=== PATIENT | female | born 1980 | race Caucasian/White ===

== ENCOUNTER 2019-02-01 06:20 | Inpatient (IN) | payer MEDICAID ==
[~2019-02-01] VITALS: Ht 154.9 cm; Wt 87.5 kg
[~2019-02-01 06:20] MED LIST: APAP500; BENADRYL25 MG PO; HUMULIN 70100 UNIT/2 SUBQ; METHADONE HCL 110 M1 PO; NORCO 10-325 T1 EACH; NOVOLOG100 UNIT/1 SUBQ; PREMPHASE 0.621 EAC1 PO; TRAMADOL 50 MG50 MG PO; TRIAMCINOLONE A80 G2 TOP
[2019-02-01] MEDS ORDERED: ABILIFY20 MG PO (06:36)
[2019-02-01] MEDS ORDERED: PROZAC20 M1 PO (06:38)
[2019-02-01] MEDS ORDERED: LITHIUM CARBON300 M6 PO (06:39)
[2019-02-01] MEDS ORDERED: ABILIFY 5 MG TAB5 MG PO (06:39)
[2019-02-01 07:13] LABS: BE -4.5 mmol/L (-2 to +3); PCO2 33.3 mmHg (35.0-45.0); PO2 94.6 mmHg (75.0-100.0); pH 7.388 (7.340-7.450)
[2019-02-01 07:41] LABS: ABSOLUTE BASOPHILS 0.1 thou/uL (0.0-0.2); ABSOLUTE EOSINOPHILS 0.2 thou/uL (0.0-0.7); ABSOLUTE LYMPHOCYTES 2.9 thou/uL (0.8-5.3); ABSOLUTE MONOCYTES 0.7 thou/uL (0.0-1.2); ABSOLUTE NEUTROPHILS 6.7 thou/uL (1.6-8.1); BASOPHILS 0.5 %; EOSINOPHILS 1.5 %; HEMATOCRIT 39.6 % (37.0-47.0); HEMOGLOBIN 13.1 gm/dL (12.0-15.0); LYMPHOCYTES 27.3 %; MCH 30.4 pg (26.0-34.0); MCHC 33.1 g/dL (28.0-37.0); MCV 91.8 fL (80.0-100.0); MONOCYTES 6.9 %; MPV 7.2 fl. (7.2-11.1); NUCLEATED RBCS 0 /100WBC; PLATELET COUNT* 368 thou/uL (150-400); POLYS 63.8 %; RBC 4.32 mil/uL (4.20-5.00); RDW-CV 12.8 % (10.5-14.5); WBC 10.5 thou/uL (4.0-11.0)
[2019-02-01 07:51] LABS: CALCIUM 9.3 mg/dL (8.5-10.1); CREATININE 0.8 mg/dL (0.6-1.3); POTASSIUM 3.5 mmol/L (3.5-5.1)
[2019-02-01 07:55] LABS: ALBUMIN 3.5 g/dL (3.4-5.0); MAGNESIUM 2.1 mg/dL (1.8-2.4); PHOSPHORUS* 3.1 mg/dL (2.5-4.9); TOTAL BILIRUBIN 0.2 mg/dL (<0.1-1.0); TOTAL PROTEIN 7.5 g/dL (6.4-8.2)
[2019-02-01 08:22] LABS: URINE BILIRUBIN NEGATIVE (Negative); URINE BLOOD NEGATIVE (Negative); URINE CLARITY CLEAR; URINE COLOR STRAW; URINE GLUCOSE-RANDOM 3+ (Negative); URINE KETONES 2+ (Negative); URINE LEUKOCYTES-REFLEX NEGATIVE (Negative); URINE NITRITE-REFLEX NEGATIVE (Negative); URINE PROTEIN NEGATIVE (Negative); URINE SPECIFIC GRAVITY <= 1.005 (1.005-1.030); URINE UROBILINOGEN 0.2 E.U./dl (0.2-1.0)
[2019-02-01 08:27] LABS: AMP/METHAMP Negative (Negative); BARBITURATES Negative (Negative); BENZODIAZEPINES POSITIVE (Negative); COCAINE POSITIVE (Negative); METHADONE Negative (Negative); OPIATES Negative (Negative); PCP Negative (Negative); THC POSITIVE (Negative)
[2019-02-01 08:47] LABS: ACETAMINOPHEN < 2 ug/mL (10-30); ALCOHOL < 10 mg/dL (<10); SALICYLATE 3.5 mg/dL (2.8-20.0)
[2019-02-01 10:46] LABS: ANION GAP 11 mmol/L (7-16); CHLORIDE 105 mmol/L (98-107); CO2 22 mmol/L (21-32); SODIUM 138 mmol/L (136-145)
[2019-02-01 11:19] VITALS: BP 109/61
[2019-02-01 11:32] VITALS: BP 117/77
--- NOTE | 2019-02-01 12:42 | EKG ---
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1980 Requested By: Terrence Parsons Order Number: [id number] : Héctor Chang Measurements Intervals [place] Rate: 90 P: 49 CO: 177 QRS: -13 QRSD: 100 T: 11 QT: 411 QTc: 503 Interpretive Statements Sinus rhythm Prolonged QT interval Compared to ECG 06/06/2018 06:42:15 Sinus tachycardia no longer present T-wave abnormality no longer present Electronically Signed On 02-01-2019 12:41:52 CDT by Héctor Chang [email or web address] <ELECTRONICALLY SIGNED> By: Chloe Chang MD, [facility] 02/01/19 1241 0628 0628 Chloe Chang MD, [facility] /EPI
[2019-02-01 13:00] VITALS: BP 110/72
[2019-02-01 14:00] VITALS: BP 107/74
[2019-02-01 15:00] VITALS: BP 109/80; BP 118/90
[2019-02-01 16:06] LABS: ALBUMIN 2.8 g/dL (3.4-5.0); CALCIUM 8.7 mg/dL (8.5-10.1); CREATININE 0.5 mg/dL (0.6-1.3); MAGNESIUM 1.9 mg/dL (1.8-2.4); POTASSIUM 3.3 mmol/L (3.5-5.1)
[2019-02-02 02:06] LABS: GLYCOHEMOGLOBIN (HGB A1C) 11.6 % (4.8-5.6)
[2019-02-02 04:54] LABS: HEMATOCRIT 33.5 % (37.0-47.0); HEMOGLOBIN 11.2 gm/dL (12.0-15.0); MCH 30.3 pg (26.0-34.0); MCHC 33.3 g/dL (28.0-37.0); MCV 90.8 fL (80.0-100.0); MPV 7.2 fl. (7.2-11.1); RBC 3.69 mil/uL (4.20-5.00); RDW-CV 12.7 % (10.5-14.5)
[2019-02-02 05:02] LABS: ANION GAP 8 mmol/L (7-16); CHLORIDE 109 mmol/L (98-107); CO2 26 mmol/L (21-32); SODIUM 143 mmol/L (136-145)
[2019-02-02 05:06] LABS: CALCIUM 8.2 mg/dL (8.5-10.1); CREATININE 0.5 mg/dL (0.6-1.3)
[2019-02-02 05:11] LABS: ALBUMIN 2.4 g/dL (3.4-5.0); MAGNESIUM 2.1 mg/dL (1.8-2.4); TOTAL BILIRUBIN 0.1 mg/dL (<0.1-1.0); TOTAL PROTEIN 5.2 g/dL (6.4-8.2)
[2019-02-02 08:00] VITALS: BP 97/52
[2019-02-02 08:30] VITALS: BP 124/73
[2019-02-02 12:00] VITALS: BP 106/70
[2019-02-02 16:00] VITALS: BP 123/80
[2019-02-03 00:59] VITALS: BP 150/91
[2019-02-03 04:00] VITALS: BP 123/72
[2019-02-03 05:10] LABS: HEMATOCRIT 33.5 % (37.0-47.0); HEMOGLOBIN 11.3 gm/dL (12.0-15.0); MCH 30.8 pg (26.0-34.0); MCHC 33.6 g/dL (28.0-37.0); MCV 91.6 fL (80.0-100.0); MPV 7.9 fl. (7.2-11.1); RBC 3.66 mil/uL (4.20-5.00); RDW-CV 12.8 % (10.5-14.5); WBC 7.3 thou/uL (4.0-11.0)
[2019-02-03 05:18] LABS: CALCIUM 8.5 mg/dL (8.5-10.1); CREATININE 0.5 mg/dL (0.6-1.3); MAGNESIUM 2.1 mg/dL (1.8-2.4); POTASSIUM 3.5 mmol/L (3.5-5.1)
[2019-02-03 08:00] VITALS: BP 119/71
[2019-02-03 12:00] VITALS: BP 138/81
[2019-02-03 16:00] VITALS: BP 110/60
--- NOTE | 2019-02-03 17:37 | CON ---
[address] [address] CONSULTATION Name: SÁNCHEZ SANCHEZ Room: [place] [address] ADM IN .R.#: [id number] Admission: 02/01/19 Attend Phys: Luzma Lucas MD Discharge: Date of : 80 Report #: [id number] THIS REPORT FOR: //name// CC: AG Lucas DATE OF SERVICE: 02/02/2019 INFECTIOUS DISEASE CONSULTATION REASON FOR CONSULTATION: Evaluate for bacteremia. HISTORY OF PRESENT ILLNESS: The patient is a 38-year-old, admitted through the Emergency Room for uncontrolled blood glucose levels, agitation associated with mild sweats and chills with nausea and vomiting. She admits to being noncompliant with her diet and insulin. She has been on methadone chronically. She states that her doctor had referred her on to another physician. She has been without methadone prescription. She has been weaning herself off over the last several weeks. She has also been taking cocaine and occasional marijuana. She denies any documented fevers. She has had no skin lesions. No cough or sputum production. No chest pain or palpitations. Denies any abdominal pain, flank pain, dysuria or frequency. No diarrhea. The nausea has improved. She has been given IV fluids and blood sugar control has improved. Overall, she feels much better. She does have underlying history of anxiety. ALLERGIES: GABAPENTIN AND TRAMADOL. MEDICATIONS: As noted on her MAR including vancomycin, which was started today after positive blood cultures were reported, pantoprazole, methadone, insulin, aripiprazole, lithium and fluoxetine. PAST MEDICAL HISTORY: Anxiety, fibromyalgia, diabetes, chronic back pain, appendectomy, hysterectomy. SOCIAL HISTORY: She has 4 children. Social history otherwise, smoker of cigarettes, occasional alcohol intake. Other issues as noted above. REVIEW OF SYSTEMS: Ten-point review was otherwise negative. PHYSICAL EXAMINATION: VITAL SIGNS: She was afebrile and hemodynamically stable. GENERAL: She is alert and cooperative and pleasant, in no acute distress. SKIN: Without lesion or rash. No palpable adenopathy. Moderately obese. HEENT: Eyes without scleral icterus. Mouth without mucositis. NECK: Supple. LUNGS: [place] [address] CONSULTATION Name: SÁNCHEZ SANCHEZ Room: [address]#: [id number] Admission: 02/01/19 Attend Phys: Luzma Lucas MD Discharge: Date of : 80 Report #: [id number] HEART: Regular without murmur. ABDOMEN: Soft, nontender. No hepatosplenomegaly or mass. EXTREMITIES: Without clubbing, cyanosis or edema. NEUROLOGIC: Cranial nerves intact. Strength in upper and lower extremities is normal. Mood is normal. LABORATORY DATA: Blood cultures 1 of 2 showing gram-positive cocci, identification is pending. Sodium is 143, potassium 4, creatinine 0.5. Liver function test is normal. Hemoglobin is 11, WBC 6, and platelet count 271,000. Drug screen is positive for marijuana, cocaine, and benzodiazepines. Urinalysis, 3+ glucose and 2+ ketones. Initial blood glucose was in the 300s, got up into the 400s, now has improved to 140. Chest x-ray was clear. IMPRESSION AND PLAN: A 38-year-old diabetic, chronic pain syndrome, who is coming off of methadone, who also does cocaine, marijuana, and benzodiazepines. I am suspecting of polysubstance abuse may be part of what is going on with her symptomatically. The positive blood culture is yet indeterminate whether it is true or contaminant. For right now, she will stay on vancomycin, pending identification of the blood culture. Agree with current management for blood glucose control. The patient will need to get set back up in her methadone clinic if possible. <ELECTRONICALLY SIGNED> By: Brandon Fleming MD 02/03/19 1737 1735 58Brandon Fleming MD /nt
[2019-02-03 20:15] VITALS: BP 147/79
[2019-02-04] VITALS: BP 118/67; BP 138/69
[2019-02-04 04:00] VITALS: BP 112/55
[2019-02-04 08:00] VITALS: BP 135/78
[2019-02-04 12:00] VITALS: BP 132/70
[2019-02-04 16:00] VITALS: BP 122/73
--- NOTE | 2019-02-04 17:36 | 2DMMODE ---
[place] [address] 2 D/M-MODE ECHOCARDIOGRAM Name: SÁNCHEZ SANCHEZ Room: [place] [address] ADM IN .R.#: [id number] Admission: 02/01/19 Attend Phys: Luzma Lucas, Discharge: Date of : 80 Date of Service: 02/04/19 1736 Report #: [id number] THIS REPORT FOR: //name// APPROVED REPORT Study performed: 02/04/2019 11:34:42 EXAM: Comprehensive 2D, Doppler, and color-flow Echocardiogram BSA: 1.82 HR: 73 bpm BP: 112/55 mmHg Other Information Study Quality: Fair Indications Bacteremia, Drug Use 2D Dimensions IVSd: 11.51 (7-11mm) LVOT Diam: 17.25 (18-24mm) LVDd: 43.95 mm PWd: 10.42 (7-11mm) Ascending Ao: 25.00 (22-36mm) LVDs: 26.91 (25-40mm) Aortic Root: 25.01 mm Aortic Valve AoV Peak Surinder.: 1.06 m/s AO Peak Gr.: 4.49 mmHg LVOT Max P.78 mmHg AO Mean Gr.: 2.65 mmHg LVOT Mean P.67 mmHg LVOT Max V: 0.97 m/s AO V2 VTI: 19.21 cm LVOT Mean V: 0.58 m/s [place] (VTI): 2.19 cm2 LVOT V1 VTI: 17.97 cm Mitral Valve E/A Ratio: 1.34 MV Decel. Time: 186.47 ms MV E Max Surinder.: 0.97 m/s MV PHT: 54.08 ms MVA (PHT): 4.07 cm2 TDI E/Lateral E': 5.71 E/Medial E': 8.08 Medial E' Surinder.: 0.12 m/s Lateral E' Surinder.: 0.17 m/[place] [address] 2 D/M-MODE ECHOCARDIOGRAM Name: SÁNCHEZ SANCHEZ Room: [address] IN ..#: [id number] Admission: 02/01/19 Attend Phys: Luzma Lucas, Discharge: Date of : 80 Date of Service: 02/04/19 1736 Report #: [id number] Pulmonary Valve PV Peak Surinder.: 1.10 m/s PV Peak Gr.: 4.82 mmHg Tricuspid Valve TR Peak Gr.: 25.19 mmHg Left Ventricle The left ventricle is normal size. There is normal LV segmental wall motion. There is normal left ventricular wall thickness. Left ventricular systolic function is normal. The left ventricular ejection fraction is within the normal range. LVEF is 60-65%. The left ventricular diastolic function is normal. Right Ventricle The right ventricle is normal size. The right ventricular systolic function is normal. Atria The left atrium size is normal. The right atrium size is normal. Aortic Valve The aortic valve is normal in structure. No aortic regurgitation is present. There is no aortic valvular stenosis. Mitral Valve The mitral valve is normal in structure. There is no mitral valve regurgitation noted. No evidence of mitral valve stenosis. Tricuspid Valve The tricuspid valve is normal in structure. There is no tricuspid valve regurgitation noted. Pulmonic Valve The pulmonary valve is normal in structure. There is no pulmonic valvular regurgitation. Great Vessels The aortic root is normal in size. IVC is normal in size and collapses >50% with inspiration. Pericardium There is no pericardial effusion. <Conclusion> [place] [address] 2 D/M-MODE ECHOCARDIOGRAM Name: SÁNCHEZ SANCHEZ Room: [address] IN [facility]#: [id number] Admission: 02/01/19 Attend Phys: Luzma Lucas, Discharge: Date of : 80 Date of Service: 02/04/19 1736 Report #: [id number] The left ventricle is normal size. There is normal left ventricular wall thickness. Left ventricular systolic function is normal. The left ventricular ejection fraction is within the normal range. LVEF is 60-65%. The left ventricular diastolic function is normal. The right ventricle is normal size. The left atrium size is normal. The aortic valve is normal in structure. The mitral valve is normal in structure. The tricuspid valve is normal in structure. IVC is normal in size and collapses >50% with inspiration. There is no pericardial effusion. There is normal LV segmental wall motion. <ELECTRONICALLY SIGNED> By: Jun Menezes MD, FACC 02/04/19 1736 1736 173 Jun Menezes MD, FACC /INF
[2019-02-04 20:10] VITALS: BP 128/73
[2019-02-05] VITALS: BP 128/74
[2019-02-05 04:00] VITALS: BP 100/58
[2019-02-05 07:00] VITALS: BP 114/72
[2019-02-05 10:58] VITALS: BP 122/74
[2019-02-05 16:08] LABS: HIV-1/HIV-2 ANTIBODY Non Reactive (Non Reactive)
[2019-02-05 20:00] VITALS: BP 134/84
[2019-02-06 04:30] VITALS: BP 98/57
[2019-02-06 08:04] VITALS: BP 129/69
[2019-02-06 08:20] VITALS: BP 129/69
[2019-02-06 10:59] VITALS: BP 153/76
[2019-02-06 15:59] VITALS: BP 109/66
[2019-02-06 20:00] VITALS: BP 113/73
[2019-02-07] VITALS: BP 97/52
[2019-02-07 08:00] VITALS: BP 114/66
[2019-02-07] MEDS ORDERED: HUMULIN 70100 UNIT/2 SUBQ (11:30)
[2019-02-07 12:00] VITALS: BP 125/70
[2019-02-07] MEDS ORDERED: AUGMENTIN 875-1 EACH PO (12:51)
[2019-02-07 12:53] VITALS: BP 114/66
== END 2019-02-07 13:15 | disposition home or self-care (01) | DRG 871 ==
LOC: M.ERS 06:20 → M.ICU 09:13 → M.TBA-ER 09:13 → M.2W 09:13 → M.ICU 11:46 → M.2W 02-02 08:59
PROVIDERS: Emergency Medicine; Internal Medicine Infectious Disease; Personal Emergency Response Attendant; ADMIT Internal Medicine
DX: A41.9 Sepsis, unspecified organism (principal); E10.10 Type 1 diabetes mellitus with ketoacidosis without coma; M19.90 Unspecified osteoarthritis, unspecified site; G89.29 Other chronic pain; M54.9 Dorsalgia, unspecified; F14.180 Cocaine abuse with cocaine-induced anxiety disorder; F17.210 Nicotine dependence, cigarettes, uncomplicated; M79.7 Fibromyalgia; Z90.710 Acquired absence of both cervix and uterus; Z90.49 Acquired absence of other specified parts of digestive tract; Z79.4 Long term (current) use of insulin; Z88.8 Allergy status to other drugs, medicaments and biological substances; Z91.19 Patient's noncompliance with other medical treatment and regimen; Z79.899 Other long term (current) drug therapy

== ENCOUNTER 2020-03-10 16:24 | Emergency (ER) | payer MEDICAID ==
[~2020-03-10] VITALS: Ht 154.9 cm; Wt 81.7 kg
[~2020-03-10 16:24] MED LIST changes: +ABILIFY 5 MG TAB5 MG PO; +ABILIFY20 MG PO; +AUGMENTIN 875-1 EACH PO; +LITHIUM CARBON300 M6 PO; +PROZAC20 M1 PO
[2020-03-10 16:32] VITALS: BP 128/105
[2020-03-10] MEDS ORDERED: SUBOXONE 2 MG-1 EAC1 PO (16:37)
[2020-03-10] MEDS ORDERED: LANTUS SUBQ (16:37)
[2020-03-10] MEDS ORDERED: BACTRIM DS TAB1 EAC1 PO (16:37)
[2020-03-10] MEDS ORDERED: HUMALOG100 UNIT/1 SUBQ (16:37)
[2020-03-10] MEDS ORDERED: CLEOCIN HCL300 MG PO (17:02)
[2020-03-10] MEDS ORDERED: MUPIROCIN1 GM TOP (17:02)
== END 2020-03-10 17:49 | disposition home or self-care (01) ==
LOC: M.ERS 16:24
DX: L02.413 Cutaneous abscess of right upper limb (principal); E10.9 Type 1 diabetes mellitus without complications; M79.7 Fibromyalgia; F17.210 Nicotine dependence, cigarettes, uncomplicated; Z90.711 Acquired absence of uterus with remaining cervical stump; Z90.49 Acquired absence of other specified parts of digestive tract; Z98.890 Other specified postprocedural states; Z79.899 Other long term (current) drug therapy; Z79.4 Long term (current) use of insulin; Z88.8 Allergy status to other drugs, medicaments and biological substances

== ENCOUNTER 2020-03-26 11:32 | Emergency (ER) | payer MEDICAID ==
[~2020-03-26] VITALS: Ht 154.9 cm; Wt 79.4 kg
[~2020-03-26 11:32] MED LIST changes: +BACTRIM DS TAB1 EAC1 PO; +CLEOCIN HCL300 MG PO; +HUMALOG100 UNIT/1 SUBQ; +LANTUS SUBQ; +MUPIROCIN1 GM TOP; +SUBOXONE 2 MG-1 EAC1 PO
[2020-03-26 12:29] LABS: ABSOLUTE BASOPHILS 0.1 thou/uL (0.0-0.2); ABSOLUTE EOSINOPHILS 0.2 thou/uL (0.0-0.7); ABSOLUTE LYMPHOCYTES 1.8 thou/uL (0.8-5.3); ABSOLUTE MONOCYTES 0.4 thou/uL (0.0-1.2); ABSOLUTE NEUTROPHILS 4.3 thou/uL (1.6-8.1); BASOPHILS 0.8 %; EOSINOPHILS 2.3 %; HEMATOCRIT 38.6 % (37.0-47.0); HEMOGLOBIN 12.9 gm/dL (12.0-15.0); LYMPHOCYTES 26.4 %; MCH 30.1 pg (26.0-34.0); MCHC 33.3 g/dL (28.0-37.0); MCV 90.4 fL (80.0-100.0); MONOCYTES 5.5 %; MPV 7.1 fl. (7.2-11.1); NUCLEATED RBCS 0 /100WBC; PLATELET COUNT* 326 thou/uL (150-400); RBC 4.27 mil/uL (4.20-5.00); RDW-CV 13.8 % (10.5-14.5); WBC 6.6 thou/uL (4.0-11.0)
[2020-03-26 12:39] LABS: CALCIUM 8.4 mg/dL (8.5-10.1); CREATININE 0.6 mg/dL (0.6-1.3)
[2020-03-26 12:49] LABS: ALBUMIN 3.2 g/dL (3.4-5.0); MAGNESIUM 1.9 mg/dL (1.8-2.4); TOTAL BILIRUBIN 0.2 mg/dL (<0.1-1.0); TOTAL PROTEIN 6.7 g/dL (6.4-8.2)
[2020-03-26 12:50] LABS: INFLUENZA A ANTIGEN Negative (Negative); INFLUENZA B ANTIGEN Negative (Negative)
[2020-03-26] MEDS ORDERED: NORCO 5-325 TA1 EAC2 PO (13:37)
[2020-03-26 14:25] VITALS: BP 111/70
--- NOTE | 2020-03-26 17:09 | EKG ---
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[facility] : 1980 Requested By: Billy Ariza Order Number: [id number] MD: Jose Carlos Grossman Measurements Intervals [place] Rate: 92 P: 39 DC: 151 QRS: -19 QRSD: 85 T: 23 QT: 371 QTc: 459 Interpretive Statements Sinus rhythm Borderline left axis deviation Consider anterior infarct Compared to ECG 02/01/2019 06:28:01 Prolonged QT interval no longer present Electronically Signed On 03-26-2020 17:09:13 CALL CENTER TRAINER by Jose Carlos Grossman [email or web address] <ELECTRONICALLY SIGNED> By: Jose Carlos Grossman MD, FAC 03/26/20 1709 1140 1140 Jose Carlos Grossman MD, [facility] /EPI
== END 2020-03-26 14:29 | disposition home or self-care (01) ==
LOC: M.ERS 11:32
PROVIDERS: Emergency Medicine Emergency Medical Services
DX: M94.0 Chondrocostal junction syndrome [Tietze] (principal); B34.9 Viral infection, unspecified; Z20.828 Contact with and (suspected) exposure to other viral communicable diseases; M79.7 Fibromyalgia; E10.9 Type 1 diabetes mellitus without complications; F17.210 Nicotine dependence, cigarettes, uncomplicated; Z88.6 Allergy status to analgesic agent; Z88.8 Allergy status to other drugs, medicaments and biological substances; Z90.710 Acquired absence of both cervix and uterus; Z90.49 Acquired absence of other specified parts of digestive tract; Z98.890 Other specified postprocedural states

== ENCOUNTER 2020-07-22 19:08 | Emergency (ER) | payer MEDICAID ==
[~2020-07-22] VITALS: Ht 154.9 cm; Wt 90.7 kg
[~2020-07-22 19:08] MED LIST changes: +NORCO 5-325 TA1 EAC2 PO
[2020-07-22] MEDS ORDERED: SEROQUEL (19:17)
[2020-07-22 20:09] LABS: INFLUENZA A ANTIGEN Negative (Negative); INFLUENZA B ANTIGEN Negative (Negative)
[2020-07-22 20:34] LABS: ABSOLUTE BASOPHILS 0.1 thou/uL (0.0-0.2); ABSOLUTE EOSINOPHILS 0.2 thou/uL (0.0-0.7); ABSOLUTE MONOCYTES 0.4 thou/uL (0.0-1.2); ABSOLUTE NEUTROPHILS 5.8 thou/uL (1.6-8.1); BASOPHILS 1.1 %; EOSINOPHILS 2.7 %; HEMATOCRIT 39.9 % (37.0-47.0); HEMOGLOBIN 13.3 gm/dL (12.0-15.0); LYMPHOCYTES 23.5 %; MCH 29.2 pg (26.0-34.0); MCHC 33.4 g/dL (28.0-37.0); MCV 87.6 fL (80.0-100.0); MONOCYTES 4.2 %; MPV 7.1 fl. (7.2-11.1); NUCLEATED RBCS 0 /100WBC; PLATELET COUNT* 352 thou/uL (150-400); POLYS 68.5 %; RBC 4.55 mil/uL (4.20-5.00); WBC 8.4 thou/uL (4.0-11.0)
[2020-07-22 20:49] LABS: CALCIUM 8.5 mg/dL (8.5-10.1); CREATININE 0.5 mg/dL (0.6-1.3); POTASSIUM 4.2 mmol/L (3.5-5.1)
[2020-07-22 20:54] LABS: ALBUMIN 3.2 g/dL (3.4-5.0); TOTAL BILIRUBIN 0.3 mg/dL (<0.1-1.0); TOTAL PROTEIN 7.5 g/dL (6.4-8.2)
[2020-07-22] MEDS ORDERED: PROAIR HFA8.5 GM INH ×2 (21:09→21:11)
[2020-07-22] MEDS ORDERED: NEBULIZER MISCELL (21:09)
[2020-07-22] MEDS ORDERED: IPRAT-ALBUT 0.5-3 ML INH (21:09)
[2020-07-22] MEDS ORDERED: ZPAK PO ×2 (21:09→21:10)
[2020-07-22 21:40] VITALS: BP 118/64
== END 2020-07-22 21:41 | disposition home or self-care (01) ==
LOC: M.ERS 19:08
PROVIDERS: Personal Emergency Response Attendant
DX: J40 Bronchitis, not specified as acute or chronic (principal); Z20.822 Contact with and (suspected) exposure to COVID-19; M79.629 Pain in unspecified upper arm; M79.7 Fibromyalgia; E10.9 Type 1 diabetes mellitus without complications; M19.90 Unspecified osteoarthritis, unspecified site; F17.210 Nicotine dependence, cigarettes, uncomplicated; Z90.711 Acquired absence of uterus with remaining cervical stump; Z90.49 Acquired absence of other specified parts of digestive tract; Z98.890 Other specified postprocedural states; Z79.4 Long term (current) use of insulin; Z79.899 Other long term (current) drug therapy; Z88.8 Allergy status to other drugs, medicaments and biological substances

== ENCOUNTER 2020-09-10 09:50 | Emergency (ER) | payer MEDICAID ==
[~2020-09-10] VITALS: Ht 154.9 cm; Wt 90.7 kg
[~2020-09-10 09:50] MED LIST changes: +IPRAT-ALBUT 0.5-3 ML INH; +NEBULIZER MISCELL; +PROAIR HFA8.5 GM INH; +SEROQUEL; +ZPAK PO
[2020-09-10 10:13] LABS: URINE BILIRUBIN NEGATIVE (Negative); URINE BLOOD TRACE (Negative); URINE CLARITY CLEAR; URINE COLOR YELLOW; URINE GLUCOSE-RANDOM 1+ (Negative); URINE KETONES NEGATIVE (Negative); URINE LEUKOCYTES-REFLEX NEGATIVE (Negative); URINE NITRITE-REFLEX NEGATIVE (Negative); URINE PROTEIN NEGATIVE (Negative); URINE SPECIFIC GRAVITY >= 1.030 (1.005-1.030); URINE UROBILINOGEN 0.2 E.U./dl (0.2-1.0)
[2020-09-10 10:22] LABS: ABSOLUTE BASOPHILS 0.1 thou/uL (0.0-0.2); ABSOLUTE EOSINOPHILS 0.2 thou/uL (0.0-0.7); ABSOLUTE LYMPHOCYTES 3.2 thou/uL (0.8-5.3); ABSOLUTE MONOCYTES 0.4 thou/uL (0.0-1.2); ABSOLUTE NEUTROPHILS 4.9 thou/uL (1.6-8.1); BASOPHILS 1.3 %; EOSINOPHILS 2.2 %; HEMATOCRIT 39.6 % (37.0-47.0); HEMOGLOBIN 13.5 gm/dL (12.0-15.0); LYMPHOCYTES 36.6 %; MCH 30.3 pg (26.0-34.0); MCHC 34.2 g/dL (28.0-37.0); MCV 88.6 fL (80.0-100.0); MONOCYTES 4.8 %; MPV 7.4 fl. (7.2-11.1); NUCLEATED RBCS 0 /100WBC; PLATELET COUNT* 344 thou/uL (150-400); POLYS 55.1 %; RBC 4.47 mil/uL (4.20-5.00); RDW-CV 13.5 % (10.5-14.5); WBC 8.8 thou/uL (4.0-11.0)
[2020-09-10 10:35] LABS: CALCIUM 8.3 mg/dL (8.5-10.1); CREATININE 0.5 mg/dL (0.6-1.3); POTASSIUM 4.1 mmol/L (3.5-5.1)
[2020-09-10 10:44] LABS: TOTAL BILIRUBIN 0.1 mg/dL (<0.1-1.0); TOTAL PROTEIN 6.7 g/dL (6.4-8.2)
[2020-09-10] MEDS ORDERED: CITRATE OF MAG296 M1 PO (11:53)
[2020-09-10] MEDS ORDERED: NAPROSYN500 MG PO (11:54)
[2020-09-10 12:14] VITALS: BP 117/72
--- NOTE | 2020-09-10 17:45 | EKG ---
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[employer] : 1980 Requested By: Billy Airza Order Number: [id number] MD: Piyush Meza Measurements Intervals [place] Rate: 73 P: 32 MD: 160 QRS: -8 QRSD: 107 T: 24 QT: 396 QTc: 437 Interpretive Statements Sinus rhythm Low voltage, precordial leads Delayed R wave progression, consider anterior infarct Compared to ECG 03/26/2020 11:40:41 Low QRS voltage now present Myocardial infarct finding still present Electronically Signed On 09-10-2020 17:44:58 CDT by Piyush Meza [email or web address] <ELECTRONICALLY SIGNED> By: Piyush Meza MD, [facility] 09/10/20 1744 1015 1015 Piyush Meza MD, [facility] /EPI
== END 2020-09-10 12:18 | disposition home or self-care (01) ==
LOC: M.ERS 09:50
PROVIDERS: Emergency Medicine Emergency Medical Services
DX: R10.11 Right upper quadrant pain (principal); M79.7 Fibromyalgia; E10.9 Type 1 diabetes mellitus without complications; F17.210 Nicotine dependence, cigarettes, uncomplicated; Z90.710 Acquired absence of both cervix and uterus; Z98.890 Other specified postprocedural states; Z88.6 Allergy status to analgesic agent; Z88.8 Allergy status to other drugs, medicaments and biological substances

== ENCOUNTER 2020-11-22 16:36 | Emergency (ER) | payer MEDICAID ==
[~2020-11-22] VITALS: Ht 154.9 cm; Wt 94.3 kg
[~2020-11-22 16:36] MED LIST changes: +CITRATE OF MAG296 M1 PO; +NAPROSYN500 MG PO
[2020-11-22] MEDS ORDERED: ABILIFY 5 MG TAB5 M1 PO (17:03)
[2020-11-22 17:19] LABS: BE 0.9 mmol/L (-2 to +3); PO2 VENOUS 129.4 mmHg (35.0-45.0)
[2020-11-22 17:20] LABS: ABSOLUTE BASOPHILS 0.1 thou/uL (0.0-0.2); ABSOLUTE EOSINOPHILS 0.2 thou/uL (0.0-0.7); ABSOLUTE LYMPHOCYTES 2.6 thou/uL (0.8-5.3); ABSOLUTE MONOCYTES 0.5 thou/uL (0.0-1.2); ABSOLUTE NEUTROPHILS 9.1 thou/uL (1.6-8.1); BASOPHILS 0.8 %; EOSINOPHILS 1.3 %; HEMATOCRIT 39.5 % (37.0-47.0); LYMPHOCYTES 21.1 %; MCH 29.3 pg (26.0-34.0); MCHC 32.9 g/dL (28.0-37.0); MCV 88.8 fL (80.0-100.0); MONOCYTES 4.3 %; MPV 7.8 fl. (7.2-11.1); NUCLEATED RBCS 0 /100WBC; PLATELET COUNT* 373 thou/uL (150-400); POLYS 72.5 %; RBC 4.45 mil/uL (4.20-5.00); RDW-CV 13.3 % (10.5-14.5); WBC 12.5 thou/uL (4.0-11.0)
[2020-11-22 17:28] LABS: CALCIUM 9.1 mg/dL (8.5-10.1); CREATININE 0.8 mg/dL (0.6-1.3); POTASSIUM 3.8 mmol/L (3.5-5.1)
[2020-11-22 17:33] LABS: ALBUMIN 3.6 g/dL (3.4-5.0); TOTAL BILIRUBIN 0.2 mg/dL (<0.1-1.0); TOTAL PROTEIN 7.5 g/dL (6.4-8.2)
[2020-11-22] MEDS ORDERED: ATIVAN1 M1 PO (17:36)
[2020-11-22 17:54] VITALS: BP 135/84
== END 2020-11-22 17:57 | disposition home or self-care (01) ==
LOC: M.ERS 16:36
PROVIDERS: Family Medicine
DX: F41.9 Anxiety disorder, unspecified (principal); F17.210 Nicotine dependence, cigarettes, uncomplicated; M79.7 Fibromyalgia; E10.9 Type 1 diabetes mellitus without complications; Z90.710 Acquired absence of both cervix and uterus; Z90.49 Acquired absence of other specified parts of digestive tract; Z79.51 Long term (current) use of inhaled steroids; Z79.1 Long term (current) use of non-steroidal anti-inflammatories (NSAID); Z79.4 Long term (current) use of insulin; Z79.899 Other long term (current) drug therapy; Z88.8 Allergy status to other drugs, medicaments and biological substances; Z88.6 Allergy status to analgesic agent